=== PATIENT | male | born 1945 | race Caucasian/White ===

== ENCOUNTER 2020-03-25 15:29 | Observation (INO) ==
[2020-03-25] MEDS ORDERED: SODIUM CHLORIDE 0.9% 1,000 ML IV STA ×2 (16:09→19:08)
[2020-03-25] MEDS ORDERED: METOCLOPRAMIDE 10 MG/2 ML VIAL IV STA (16:09)
[2020-03-25] MEDS ORDERED: ONDANSETRON 4 MG/2 ML VIAL IV STA (16:09)
[2020-03-25] MEDS ORDERED: PANTOPRAZOLE 40 MG VIAL IV STA (16:09)
[2020-03-25 17:05] LABS: Basophils % 0.4 % (0.0-0.8); Eosinophils # 0.2 10*3/uL (0.0-0.87); Eosinophils % 3.7 % (0.00-10.9); Hematocrit 50.8 VOL% (42.0-52.0); Hemoglobin 16.5 GM/DL (14.0-18.0); Immature Granulocytes % 0.2 %; Immature Granulocytes Absolute 0.01 #; Lymphocytes # 0.9 10*3/uL (1.4-4.0); Lymphocytes % 17.9 % (21.2-54.2); Mean Corpuscular HGB Conc 32.5 GM/DL (32-36); Mean Corpuscular Volume 93.4 FL (87-102); Mean Platelet Volume 9.7 FL (9.6-12.0); Monocytes % 8.7 % (1.7-12.7); Neutrophils % 69.1 % (38.7-73.9); Platelet Count 211 T/CUMM (130-400); Red Blood Count 5.44 MC/CUMM (3.8-5.5); Red Cell Distribution Width 16.1 % (9.3-17.3); White Blood Count 4.9 T/CUMM (4-12)
[2020-03-25 17:30] LABS: Alanine Aminotransferase 72 U/L (16-61); Albumin 4.4 G/DL (3.4-5.0); Alkaline Phosphatase 120 U/L (45-117); Amylase 40 U/L (25-115); Aspartate Amino Transferase 47 U/L (0-37); Blood Urea Nitrogen 16 MG/DL (7-18); Calcium 9.6 MG/DL (8.5-10.1); Estimated Glom Filtration Rate 68 ML/MIN; Ferritin 33.9 ng/ml (26-388); Glucose 177 MG/DL (74-106); Osmolality,Calculated 274.1 MOS/KG (273-304); Total Protein 7.8 G/DL (6.4-8.3); Troponin I < 0.015 NG/ML (0.00-0.045)
[2020-03-25 17:35] LABS: Apearance,Urine CLEAR (Clear); Bilirubin,Urine Negative (Negative); Blood, Urine Negative (Negative); Glucose,Urine (UA) Negative (Negative); Hyaline Casts,Urine 1 /LPF (0-3); Ketones,Urine Negative (Negative); Mucus,Urine Occasional /LPF (Occasional); Nitrite,Urine Negative (Negative); Protein,Urine Negative; Urine Color Yellow (Yellow); Urine Specific Gravity 1.009 (1.001-1.035); Urine Urobilinogen < 2.0 EU/DL (0.2-1.0); WBC,Urine 1 /HPF (0-6)
[2020-03-25] MEDS ORDERED: hydrALAZINE 20 MG/1 ML VIAL IV STA (17:59)
[2020-03-25] MEDS ORDERED: fentaNYL 100 MCG/2 ML VIAL IV STA (19:07)
[2020-03-25] MEDS ORDERED: HYDROmorphone 2 MG/1 ML VIAL IV STA (19:15)
[2020-03-25] MEDS ORDERED: diphenhydrAMINE 50 MG/1 ML VIAL IV STA (19:16)
[2020-03-25] MEDS ORDERED: hydrALAZINE 20 MG/1 ML VIAL IV PRN (19:17)
[2020-03-25] MEDS ORDERED: PROMETHAZINE 25 MG/1 ML VIAL IM PRN (19:17)
[2020-03-25] MEDS ORDERED: HYDROmorphone 2 MG/1 ML VIAL IV PRN (19:17)
[2020-03-25] MEDS ORDERED: GLUCAGON 1 MG VIAL IM PRN ×2 (19:17)
[2020-03-25] MEDS ORDERED: ONDANSETRON 4 MG/2 ML VIAL IV PRN (19:17)
[2020-03-25] MEDS ORDERED: DEXTROSE 50% 25 GM/50 ML VIAL IV PRN ×2 (19:17)
[2020-03-25] MEDS ORDERED: ACETAMINOPHEN 325 MG TABLET PO PRN (19:17)
[2020-03-25] MEDS ORDERED: ENOXAPARIN 40 MG/0.4 ML SYRINGE SUBCUT SCH (19:30)
[2020-03-25] MEDS: SODIUM CHLORIDE 0.9% 1,000 ML IV SCH (21:36)
[2020-03-25] MEDS: INSULIN LISPRO 100 UNIT/ML SUBCUT SCH (21:52)
[2020-03-26 04:13] LABS: Basophils % 0.3 % (0.0-0.8); Eosinophils # 0.1 10*3/uL (0.0-0.87); Eosinophils % 2.4 % (0.00-10.9); Hematocrit 46.4 VOL% (42.0-52.0); Hemoglobin 14.9 GM/DL (14.0-18.0); Immature Granulocytes % 0.2 %; Immature Granulocytes Absolute 0.01 #; Lymphocytes % 17.3 % (21.2-54.2); Mean Corpuscular HGB Conc 32.1 GM/DL (32-36); Mean Corpuscular Volume 93.2 FL (87-102); Mean Platelet Volume 10.3 FL (9.6-12.0); Monocytes % 9.8 % (1.7-12.7); Platelet Count 181 T/CUMM (130-400); Red Blood Count 4.98 MC/CUMM (3.8-5.5); Red Cell Distribution Width 16.5 % (9.3-17.3); White Blood Count 5.8 T/CUMM (4-12)
[2020-03-26 05:57] LABS: Calcium 9.1 MG/DL (8.5-10.1); Osmolality,Calculated 279.7 MOS/KG (273-304); Risk Ratio 7.48; Thyroid Stimulating Hormone 6.21 uIU/ml (0.358-3.74); VLDL CHOLESTEROL 43.2 MG/DL
[2020-03-26] MEDS: SODIUM CHLORIDE 0.9% 1,000 ML IV SCH (06:08)
[2020-03-26] MEDS ORDERED: traMADol 50 MG TABLET PO SCH (09:00)
[2020-03-26] MEDS ORDERED: ASPIRIN CHEW 81 MG TABLET PO SCH (09:00)
[2020-03-26] MEDS ORDERED: PANTOPRAZOLE 40 MG TABLET PO SCH (09:00)
[2020-03-26] MEDS ORDERED: METOPROLOL SUCCINATE XL 25 MG TABLET PO SCH (09:00)
[2020-03-26] MEDS ORDERED: FUROSEMIDE 20 MG TABLET PO SCH (09:00)
[2020-03-26] MEDS ORDERED: POTASSIUM CHLORIDE 8 MEQ CAPSULE PO SCH (09:00)
[2020-03-26] MEDS ORDERED: EXENATIDE MICROSPHERES 2 MG SUBCUT SCH (09:00)
[2020-03-26] MEDS ORDERED: FENOFIBRATE 145 MG TABLET PO SCH (09:00)
[2020-03-26] MEDS ORDERED: ENALAPRIL 5 MG TABLET PO SCH (09:00)
[2020-03-26] MEDS ORDERED: INSULIN GLARGINE 100 UNIT/ML SUBCUT SCH (09:15)
[2020-03-26] MEDS: INSULIN LISPRO 100 UNIT/ML SUBCUT SCH (10:23)
[2020-03-26 11:53] VITALS: BP 152/69
[2020-03-26] MEDS ORDERED: SIMVASTATIN 20 MG TABLET PO SCH (21:00)
[2020-03-27] MEDS ORDERED: LEVOTHYROXINE 150 MCG TABLET PO SCH (07:30)
== END 2020-03-26 11:50 | disposition home or self-care (01) ==
LOC: N.ED 15:29 → N.EDINP 15:29 → N.3E 21:05
PROVIDERS: ADMIT Internal Medicine; ATTEND Internal Medicine

== ENCOUNTER 2022-10-21 14:33 | Inpatient (IN) ==
[2022-10-21] MEDS ORDERED: SODIUM CHLORIDE 0.9% 1,000 ML IV STA (20:47)
[2022-10-21] MEDS ORDERED: ONDANSETRON 4 MG/2 ML VIAL IV STA (20:47)
[2022-10-21] MEDS ORDERED: HYDROmorphone 1 MG/1 ML SYRINGE IV STA (20:47)
[2022-10-21 20:52] LABS: Basophils % 0.3 % (0.0-0.8); Eosinophils % 0.2 % (0.00-10.9); Hemoglobin 17.2 GM/DL (14.0-18.0); Immature Granulocytes % 0.5 %; Immature Granulocytes Absolute 0.03 #; Lymphocytes # 0.6 10*3/uL (1.4-4.0); Lymphocytes % 9.6 % (21.2-54.2); Mean Corpuscular HGB Conc 33.1 GM/DL (32-36); Mean Corpuscular Volume 88.4 FL (87-102); Mean Platelet Volume 9.7 FL (9.6-12.0); Monocytes # 0.3 10*3/uL (0.11-0.8); Monocytes % 4.9 % (1.7-12.7); Neutrophils % 84.5 % (38.7-73.9); Platelet Count 192 T/CUMM (130-400); Red Blood Count 5.88 MC/CUMM (3.8-5.5); Red Cell Distribution Width 13.8 % (9.3-17.3); White Blood Count 6.5 T/CUMM (4-12)
[2022-10-21 21:18] LABS: Mucus,Urine Occasional /LPF (Occasional); RBC,Urine <1 /HPF (0-4)
[2022-10-21 21:18] LABS: Albumin 4.2 G/DL (3.4-5.0); Bilirubin,Total 0.9 MG/DL (0.20-1.00); Calcium 10.4 MG/DL (8.5-10.1); Osmolality,Calculated 289.3 MOS/KG (273-304); Potassium 4.9 MMOL/L (3.5-5.1); Total Protein 7.9 G/DL (6.4-8.2)
[2022-10-21 21:20] LABS: Bilirubin,Urine Negative (Negative); Blood, Urine Trace mg/dL (Negative); Glucose,Urine (UA) >=1000 mg/dL (Negative); Ketones,Urine 40 mg/dL (Negative); Nitrite,Urine Negative (Negative); Protein,Urine Negative (Negative); Urine Appearance Clear (Clear); Urine Color Yellow (Yellow); Urine Specific Gravity 1.025 (1.001-1.035); Urine Urobilinogen 0.2 eU/dL (<2.0)
[2022-10-21] MEDS ORDERED: hydrALAZINE 20 MG/1 ML VIAL IV PRN (23:18)
[2022-10-21] MEDS ORDERED: ONDANSETRON 4 MG/2 ML VIAL IV PRN (23:18)
[2022-10-21] MEDS ORDERED: GLUCAGON 1 MG VIAL IM PRN (23:18)
[2022-10-21] MEDS ORDERED: DEXTROSE 10% 250 ML BAG IV PRN (23:28)
[2022-10-21] MEDS ORDERED: ENOXAPARIN 100 MG/ML SYRINGE SUBCUT SCH (23:30)
[2022-10-21] MEDS ORDERED: SODIUM CHLORIDE 0.9% 1,000 ML IV SCH (23:30)
[2022-10-22] MEDS: ENOXAPARIN 80 MG/0.8 ML SYRINGE SUBCUT SCH ×2 (00:02→11:44)
[2022-10-22 02:35] LABS: Basophils % 0.2 % (0.0-0.8); Eosinophils % 0.7 % (0.00-10.9); Hematocrit 43.8 VOL% (42.0-52.0); Hemoglobin 14.6 GM/DL (14.0-18.0); Immature Granulocytes % 0.3 %; Immature Granulocytes Absolute 0.02 #; Lymphocytes % 17.5 % (21.2-54.2); Mean Corpuscular HGB Conc 33.3 GM/DL (32-36); Mean Corpuscular Volume 87.8 FL (87-102); Mean Platelet Volume 9.8 FL (9.6-12.0); Monocytes # 0.5 10*3/uL (0.11-0.8); Monocytes % 7.7 % (1.7-12.7); Neutrophils % 73.6 % (38.7-73.9); Platelet Count 152 T/CUMM (130-400); Red Blood Count 4.99 MC/CUMM (3.8-5.5); Red Cell Distribution Width 13.8 % (9.3-17.3); White Blood Count 5.9 T/CUMM (4-12)
[2022-10-22 03:06] LABS: Albumin 3.4 G/DL (3.4-5.0); Bilirubin,Total 0.6 MG/DL (0.20-1.00); Calcium 9.1 MG/DL (8.5-10.1); Osmolality,Calculated 291.3 MOS/KG (273-304); Potassium 4.7 MMOL/L (3.5-5.1); Total Protein 6.3 G/DL (6.4-8.2)
[2022-10-22] MEDS: LEVOTHYROXINE 125 MCG TABLET PO SCH ×2 (05:52→11:13)
[2022-10-22] MEDS ORDERED: FUROSEMIDE 20 MG TABLET PO SCH (09:00)
[2022-10-22] MEDS ORDERED: FENOFIBRATE 145 MG TABLET PO SCH (09:00)
[2022-10-22] MEDS ORDERED: ATORVASTATIN 20 MG TABLET PO SCH (09:00)
[2022-10-22] MEDS ORDERED: METOPROLOL SUCCINATE XL 25 MG TABLET PO SCH (09:00)
[2022-10-22] MEDS ORDERED: PANTOPRAZOLE 40 MG TABLET PO SCH (09:00)
[2022-10-22] MEDS ORDERED: ENALAPRIL 5 MG TABLET PO SCH (09:00)
[2022-10-22] MEDS ORDERED: ASPIRIN CHEW 81 MG TABLET PO SCH (09:00)
[2022-10-22] MEDS ORDERED: POTASSIUM CHLORIDE 10 MEQ TABLET PO SCH (09:00)
[2022-10-22] MEDS ORDERED: methylPREDNISolone SOD SUC 125 MG/2 ML VIAL IV ONE (09:50)
[2022-10-22] MEDS: INSULIN LISPRO 100 UNIT/ML SUBCUT SCH ×2 (11:44→11:49)
[2022-10-22 12:20] VITALS: BP 127/58
== END 2022-10-22 14:30 | disposition home or self-care (01) | DRG 546 ==
LOC: N.ED 14:33 → N.EDINP 14:33 → OBSVTOIN 23:14 → SUATTDRO 23:14 → N.TELEN 23:50
PROVIDERS: ADMIT Internal Medicine Geriatric Medicine; ATTEND Family Medicine